=== PATIENT | female | born 1985 | race Caucasian/White ===

== ENCOUNTER 2021-12-03 22:29 | Observation (INO) | payer OTHER ==
[2021-12-04] MEDS ORDERED: Lactated Ringers 1,000 ML IV ONE (00:35)
[2021-12-04] MEDS ORDERED: Ketorolac 30 MG/ML SDV IVPUSH STA (00:36)
[2021-12-04] MEDS ORDERED: cefTRIAXone 2 GM in Premix Bag 1 BAG IV ONE (00:38)
[2021-12-04 01:45] LABS: BLOOD UREA NITROGEN,BUN 15 mg/dL (7.0-18.0); CARBON DIOXIDE,CO2 22.8 mmol/L (21.0-32.0); CHLORIDE,CL 99 mmol/L (98-107); GLUCOSE RANDOM 117 mg/dL (74-106); POTASSIUM,K 3.7 mmol/L (3.5-5.1); SODIUM,NA 134 mmol/L (136-145)
[2021-12-04] MEDS ORDERED: Iopamidol 755 MG/ML 500 ML Multipack Bottle IVPUSH ONE (01:54)
[2021-12-04] MEDS ORDERED: Lactated Ringers 1,000 ML IV STA (03:44)
[2021-12-04] MEDS ORDERED: Acetaminophen/oxyCODONE 325-5 MG Tab PO PRN (06:10)
[2021-12-04] MEDS ORDERED: Ondansetron 4 MG/2 ML SDV IVPUSH PRN (06:10)
[2021-12-04] MEDS ORDERED: Ibuprofen 600 MG Tab PO PRN (06:16)
[2021-12-04] MEDS ORDERED: Gentamicin 460 MG in Dextrose 5% in Water 100 ML IV ONE ×4 (07:00→12:00)
[2021-12-04] MEDS: Clindamycin Phosphate in D5W 900 MG in Premix Bag 1 BAG IV SCH ×6 (08:01→23:58)
[2021-12-04] MEDS ORDERED: Acetaminophen 325 MG Tab PO PRN (08:55)
[2021-12-04] MEDS: Lactated Ringers 1,000 ML IV SCH ×2 (12:34→21:32)
[2021-12-05] MEDS: Lactated Ringers 1,000 ML IV SCH (04:55)
[2021-12-05 07:45] LABS: BLOOD UREA NITROGEN,BUN 13 mg/dL (7.0-18.0); CARBON DIOXIDE,CO2 24.9 mmol/L (21.0-32.0); CHLORIDE,CL 105 mmol/L (98-107); GLUCOSE RANDOM 93 mg/dL (74-106); SODIUM,NA 141 mmol/L (136-145)
[2021-12-05] MEDS: Clindamycin Phosphate in D5W 900 MG in Premix Bag 1 BAG IV SCH ×4 (08:04→15:38)
[2021-12-05] MEDS ORDERED: Gentamicin 460 MG in Dextrose 5% in Water 100 ML IV SCH ×2 (12:00)
== END 2021-12-05 16:35 | disposition home or self-care (01) ==
LOC: MW.ED 22:29 → INTOOBSV 12-04 03:49 → MW.MS 12-04 03:49 → MW.OB 12-04 03:50
PROVIDERS: ADMIT Obstetrics & Gynecology; ATTEND Obstetrics & Gynecology
DX: R50.9 Fever, unspecified (principal); E11.9 Type 2 diabetes mellitus without complications; E66.9 Obesity, unspecified; F41.9 Anxiety disorder, unspecified; Z98.890 Other specified postprocedural states; Z79.899 Other long term (current) drug therapy; Z20.822 Contact with and (suspected) exposure to COVID-19
CPT/HCPCS: 36415; 74177; 76856; 80053; 80170; 81001; 81025; 83605; 85025; 85610; 87040; 87086; 87635; 96365; 96366; 96367; 96375; 96376; 99285; G0378; J0696; J1580; J1885; J3490; J7120; Q9967; U0002